=== PATIENT | female | born 1990 | race Caucasian/White ===

== ENCOUNTER 2022-07-09 10:08 | Outpatient (CLI) | payer BC ==
[2022-07-10 04:06] LABS: THYROID PEROXIDASE (TPO) AB 11 IU/mL (0-34)
== END 2022-07-09 23:59 | disposition home or self-care (01) ==
LOC: LAB 10:08
PROVIDERS: ATTEND Family Medicine
DX: R94.6 Abnormal results of thyroid function studies (principal)
CPT/HCPCS: 36415